=== PATIENT | male | born 1970 | race Caucasian/White ===

== ENCOUNTER 2016-10-16 11:33 | Emergency (ER) | payer OTHER ==
[2016-10-16 13:18] VITALS: BP 149/96
== END 2016-10-16 13:19 | disposition home or self-care (01) ==
LOC: ED 11:33
DX: S91.331A Puncture wound without foreign body, right foot, initial encounter (principal); L03.115 Cellulitis of right lower limb; W22.8XXA Striking against or struck by other objects, initial encounter; Y93.89 Activity, other specified; Y92.89 Other specified places as the place of occurrence of the external cause; Y99.8 Other external cause status
CPT/HCPCS: 90715; J3490; Q0092

== ENCOUNTER 2016-10-18 11:14 | Inpatient (IN) | payer OTHER ==
[~2016-10-18] VITALS: Ht 165.1 cm; Wt 71.9 kg
--- NOTE | 2016-10-18 11:49 | NUR ---
PT AMBULATORY TO ROOM, AWAITING MSE
--- NOTE | 2016-10-18 12:28 | NUR ---
MSE COMPLETED BY DR MONSALVE
[2016-10-18 12:44] LABS: BASOPHIL % 0.4 % (0-2); PLATELET COUNT 245 x10^3mcL (130-400); RED CELL DISTRIBUTION WIDTH 12.2 % (11.5-14.5)
[2016-10-18 12:48] LABS: CALCIUM 8.6 mg/dL (8.5-10.1); CARBON DIOXIDE 29.1 mmol/L (21-32); CHLORIDE SERUM 110 mmol/L (98-107); CREATININE SERUM 0.7 mg/dL (0.7-1.3); GFR1 > 60 mL/min; GLUCOSE SERUM 99 mg/dL (74-106); POTASSIUM SERUM 4.4 mmol/L (3.5-5.1); SODIUM SERUM 145 mmol/L (136-145)
[2016-10-18 12:52] LABS: ALBUMIN 3.4 g/dL (3.4-5.0); ALKALINE PHOSPHATASE 80 U/L (46-116); ALT/SGPT 29 U/L (16-63); AST/SGOT 19 U/L (15-37); BILIRUBIN TOTAL 0.59 mg/dL (0.20-1.00); TOTAL PROTEIN, SERUM 7.3 g/dL (6.4-8.2)
--- NOTE | 2016-10-18 13:09 | NUR ---
PT RESTING ON GURNEY IN A POSITION OF COMFORT. PT PLACED ON MONITOR WITH CALL LIGHT IN REACH.
--- NOTE | 2016-10-18 13:42 | NUR ---
REPORT GIVEN TO CABRERA JACKMAN TO ASSUME CARE OF PT.
[2016-10-18] MEDS ORDERED: CLINDAMYCIN HC300 MG PO (13:55)
[2016-10-18 15:20] VITALS: BP 132/85
--- NOTE | 2016-10-18 15:31 | NUR ---
RECEIVED PATIENT FROM ED VIA GUERNEY, PATIENT IN NO ACUTE DISTRESS, ALERT AND ORIENTED, C/O PAIN TO RIGHT FOOT AND WILL MEDICATE ORDERED, TELE # [id number] SR, ORIENTED PATIENT TO ROOM AND SURROUNDINGS, BED IN LOW POSITION, BED RAILS UP X 2, CALL LIGHT WITHIN REACH, WILL ENDORSE CARE TO PRIMARY NURSE ARLETTE JACKMAN
[2016-10-18 15:57] LABS: T3 TOTAL 0.96 ng/mL
[2016-10-18 15:59] LABS: FREE T4 1.02 ng/dL (0.76-1.46); FREE THYROXINE INDEX 1.9 ug/dL (1.4-4.5); T4(THYROXINE) 5.4 ug/dL (4.7-13.3)
[2016-10-18 17:25] VITALS: BP 137/96
[2016-10-18 18:07] LABS: UA SPECIFIC GRAVITY >=1.030 (1.005-1.035); microscopic required? YES; urine erythrocyte NEGATIVE (NEGATIVE)
--- NOTE | 2016-10-18 18:26 | NUR ---
PATIENT C/0 PAIN TO RIGHT FOOT 10/16. MEDICATED WITH NORCO ORDRED (SEE EMAR). DR. SMALL IN TO SEE PATIENT AND EXPLAIN RISKS AND BENEFITS OF INCISION AND DRAINAGE. PATIENT VERBALIZES UNDERSTANDING, SIGNED CONSENT. QUESTIONS AND CONCERNS ADDRESSED. WITNESSED BY PRIMARY RN.
[2016-10-18 18:37] LABS: AMPHETAMINE QUAL UR POSITIVE (NEG <=1000)
[2016-10-18 19:28] LABS: CHOLESTEROL/HDL RATIO 2.6
--- NOTE | 2016-10-18 20:20 | NUR ---
Awake and verbally responsive. No resp.distress noted. Had pain med earlier for c/o right foot pain with help. Kept RLE elevated. Erythema and edema noted. Pedal pulses palpable. Will cont.to monitor. Call light within reach.
[2016-10-18 20:53] VITALS: BP 153/103
--- NOTE | 2016-10-19 04:13 | NUR ---
Afebrile. [place] given as ordered for c/o right foot pain with help. Erythema and edema still apparent. Kept RLE elevated on pillows. (+)cms. Cont.on IV levaquin and cleocin. In no apparent distress noted.
[2016-10-19 05:27] VITALS: BP 169/103
--- NOTE | 2016-10-19 06:26 | NUR ---
notified re:pt's right foot pain not well controlled by norco 1 tab and also made aware of the high Bp.
[2016-10-19 06:49] LABS: BASOPHIL % 0.4 % (0-2); PLATELET COUNT 239 x10^3mcL (130-400); RED CELL DISTRIBUTION WIDTH 12.1 % (11.5-14.5)
--- NOTE | 2016-10-19 08:00 | NUR ---
RECEIVED PATIENT ALERT AND ORIENTED AND SITTING UP IN BED AND EATTING AT THIS TIME. VITALS ARE AT 98.4, 67, 18, 169/103, 98%B ON ROOM AIR. PATIENT AHS OTED ELEVATION FO THE BP. PATIENT HAS NO HISOTYR PER THE REPORT AND WILL ADVISE THE INTERNS INDICATED. NELDA TORRES STEPPED ON A NAIL AT WORK AND THE RIGHT FOOT IS WITH REDNESS AND SWELLING. DOUG HAS HX OF CYST REMOVAL AND NO OTHER HIOSTORY AT THIS TIME. АЛЕКСАНДРPENNY Arora NOTED LABS ARE WITH UA WITH POISTIVE FOR AMPHETAMINE AND BACTERIA IS FEW. PATIENT HAS BEEN ON LEVZAQUIN AND CLEAOSIN FOR THE INFECTION AND NO ADVERSEREACTION NTOED. PATIENT HAS CLEAR BREATH SOUND SAND ACTIVE BOWEL SOUNDS. ABDOJNE IS DISTENDED AND FIRM. PATIENT TOLERATED DIET AND NO ACUTE PAIN NOTED AT THIS TIME. NORCO WAS GIVEN AND MODERATELY EFFECTIVE PER THE NIGHT NIGHT REPORT. WILL CONTINUE TO MONTIOR INDICATED.
[2016-10-19 08:03] LABS: CALCIUM 8.1 mg/dL (8.5-10.1); CARBON DIOXIDE 28.1 mmol/L (21-32); CHLORIDE SERUM 105 mmol/L (98-107); CREATININE SERUM 0.6 mg/dL (0.7-1.3); GFR1 > 60 mL/min; GLUCOSE SERUM 104 mg/dL (74-106); PHOSPHOROUS 3.7 mg/dL (2.5-4.9); SODIUM SERUM 139 mmol/L (136-145)
--- NOTE | 2016-10-19 09:25 | NUR ---
SEEN BY DR CROWDER AND STAFF AND PLAN OF CARE DISCUSSED IN [facility]. PATIENT WITH CONSENT FOR THE I AND D BUT NO ORDERS YET NOTED. PATIENT HAS NOTE DELEVATED BP AND ADVISED THE INTERNS INDICATED AND ORDERS PENDING AT THIS TIME.
[2016-10-19 09:40] VITALS: BP 158/100
--- NOTE | 2016-10-19 10:57 | NUR ---
ECHO COMPLETED PT C/O FOOT PAIN RN NOTIFIED.
--- NOTE | 2016-10-19 11:30 | NUR ---
GAVE NORCO FOR PAIN PER PATIENT REQUEST. WILL MONITOR FOR EFFECTIVENESS.
--- NOTE | 2016-10-19 11:54 | NUR ---
TAKEN DOWN FOR I AND D AT THIS TIME. PATIENT HAS NOT BEEN NPO AND IS NOT IN THE SURGICAL UNIT SO SURGERY ORDERS DO NOT APPLY. RE: NPO/PREP. DR AWARE OF THE ORDERS AND PRESENT CONSENT. PLACED ANOTHER UNSIGNED CONSENT IN THE CHART FOR THEM TO HAVE THE PATIENT SIGN REVISED VERSION BEFORE THE PROCEDURE.
[2016-10-19 13:15] VITALS: BP 149/102
--- NOTE | 2016-10-19 13:29 | NUR ---
BACK FROM I AND D AND NOW ASKING FOR PAIN MEDICATION FOR PAIN. THE NURSE JUST GAVE NORCO PRIOR TO LEAVING THE FLOOR AND PATIENT HAS HAD LIDOCAINE TO THE SITE. PATIENT STATES HE IS JUST ANTICIPATING PAIN BUT DOES NOT HAVE AT THIS TIME.
--- NOTE | 2016-10-19 14:33 | NUR ---
PATIENT COMPLAINED OF PAIN TO THE FOOT. SPECIFALY THE SMALL TOE AREA. REWRAPPED THE [place] DUE TO THE VELCRO STRIP WAS CAUSING HIM DISCOMFORT. PATIENT STATED RELIEF. WILL GIVE PAIN MEDICATION AT 1500 INDICATED IF PAIN HAS STILL PAIN TO THE SITE. TOLERATED DIET AND CHECKED THE REST OF THE DRESSING AND NOT TO TIGHT OR ANY RESTRICTIONS NTOED. DRAINAGE NOTED TO THE TOP OF THE DRESSING BUT OTHERWISE INTACT.
--- NOTE | 2016-10-19 15:44 | NUR ---
PATIENT RESTING QUIETLY AT THIS TIME. IV INTACT AND PATIENT HAD GOOD RELIEF FROM THE ADJUSTING OF THE DRESSING AND THE NORCO GIVEN. WILL CONTINUE TO MONITOR.
[2016-10-19 17:50] VITALS: BP 140/90
--- NOTE | 2016-10-19 18:33 | NUR ---
PATIENT HAS BEEN GATHERING FOOD AT BEDSIDE AND SOMEHOW FAMILY AND FRIENDS ARE BRINGING FOOD. PATIENT HAS GATORAIDE, SNACKS AND NOW A MEAL AT BEDSIDE. PATIENT WAS REMINDED ALONG WITH THE VISITORS THAT NO FOOD FROM HOME IS TO BE BROUGHT IN TO THE PATIENT. STILL MORE ARRIVES. WILL ENDORSE TO THE NEXT SHIFT AND ADVISE THE CHARGE NURSE WELL.
--- NOTE | 2016-10-19 20:08 | NUR ---
RECEIVED PATIENT IN BED AWAKE, ALERT AND ORIENTED WITH NO SIGN OF ACUTE DISTRESS NOTED. TELE# 13 NSR ON MONITOR DENIES CHESTPAIN. DRESSING TO RT FOOT CDI. IV TO LAC INTACT AND INFUSING WELL. WILL CONTINUE TO MONITOR.
--- NOTE | 2016-10-19 20:22 | NUR ---
C/O PAIN RT FOOT WOUND, NORCO 1 TAQB PO GIVEN PRESCRIBED. WILL CONTINUE TO MONITOR.
[2016-10-19 20:42] VITALS: BP 144/87
--- NOTE | 2016-10-19 22:28 | NUR ---
STILL C/O PAIN ON HIS RT FOOT, DR PENA MADE AWARE, WAITING FOR NEW ORDERS.
--- NOTE | 2016-10-19 22:51 | NUR ---
STILL C/O PAIN, MORPHINE 5MG IVP GIVEN PRESCRIBED. WILL CONTINUE TO MONITOR.
--- NOTE | 2016-10-19 23:56 | NUR ---
RELIEF NOTED PER PATIENT AFTER PAIN MEDS WAS GIVEN, ELEVATED RT FOOT WITH PILLOW.
--- NOTE | 2016-10-20 00:57 | NUR ---
SLEEPING THIS TIME AFTER PAIN MEDS WAS GIVEN. WILL CONTINUE TO MONITOR.
--- NOTE | 2016-10-20 04:27 | NUR ---
AWAKE C/O PAIN TO RT FOOT, MEDICATED WITH MORPHINE 5MG IVP PRESCRIBED. WILL CONTINUE TO MONITOR.
--- NOTE | 2016-10-20 05:04 | NUR ---
SLEPT AT LONG INTERVALS C/O RT FOOT PAIN X2 AND MEDICATED PRESCRIBED. DRESSING TO RT FOOT CDI. ALL NEEDS ATTENDED.
[2016-10-20 05:10] VITALS: BP 162/98
--- NOTE | 2016-10-20 05:58 | NUR ---
BLOOD PRESSURE CHECKED- 162/98, DR PENA MADE AWARE WITH ORDERS TO CARRY OUT.
[2016-10-20 06:17] VITALS: BP 135/94
[2016-10-20 08:30] VITALS: BP 153/96
--- NOTE | 2016-10-20 08:47 | NUR ---
PATIENT RESTING IN BED NO DISTRESS NOTED, DENIES PAIN, ALL DUE MEDS GIVEN. CLEOCIN 600MG IVPB GIVEN. NEEDS ANTICIPATED. UPDATED POC AND DR. SONYA NINO.
[2016-10-20 08:49] LABS: BASOPHIL % 0.4 % (0-2); PLATELET COUNT 285 x10^3mcL (130-400); RED CELL DISTRIBUTION WIDTH 12.2 % (11.5-14.5)
[2016-10-20 08:58] LABS: CALCIUM 8.9 mg/dL (8.5-10.1); CARBON DIOXIDE 31.1 mmol/L (21-32); CHLORIDE SERUM 102 mmol/L (98-107); CREATININE SERUM 0.7 mg/dL (0.7-1.3); GFR1 > 60 mL/min; GLUCOSE SERUM 106 mg/dL (74-106); MAGNESIUM 2.2 mg/dL (1.8-2.4); PHOSPHOROUS 3.7 mg/dL (2.5-4.9); POTASSIUM SERUM 3.9 mmol/L (3.5-5.1); SODIUM SERUM 137 mmol/L (136-145)
[2016-10-20] MEDS ORDERED: ZES10 PO (10:23)
[2016-10-20] MEDS ORDERED: METOPROLOL TART25 M1 PO (10:23)
[2016-10-20] MEDS ORDERED: ACETAMINOPHEN-H1 TA1 PO (10:24)
[2016-10-20] MEDS ORDERED: CLINDAMYCIN HC300 MG PO (10:32)
[2016-10-20] MEDS ORDERED: LEVAQUIN500 M1 PO (10:34)
[2016-10-20] MEDS ORDERED: LAC PO (10:34)
[2016-10-20 11:35] VITALS: BP 153/96
--- NOTE | 2016-10-20 12:13 | NUR ---
PATIENT RESTING IN BED NO COMPLAINTS, VISITORS AT BEDSIDE, UPDATED ON DISCHARGE STATUS. DUE MEDS GIVEN. CONT TO MONITOR.
--- NOTE | 2016-10-20 15:25 | NUR ---
PATIENT GETTING DRESS, DISCHARGE INSTRUCTIONS AND PRESCRIPTIONS EXPLAINED, F/U APPT ON 10/24/16. ALL BELONGINGS WITH PATIENT. C/O /10 RT FOOT PAIN, NORCO 1 TAB PO GIVEN. CALL MOLDED FRAMES ASSEMBLER TO WHEEL PATIENT OUT.
== END 2016-10-20 15:33 | disposition home or self-care (01) | DRG 579 ==
LOC: ED 11:14 → DU 13:21
PROVIDERS: Emergency Medicine; Podiatrist; ADMIT Family Medicine
PROC: 0J9Q0ZZ Drainage of Right Foot Subcutaneous Tissue and Fascia, Open Approach (ICD-10-PCS; principal; 2016-10-19 12:00)
DX: S91.331S Puncture wound without foreign body, right foot, sequela (principal); G92 Toxic encephalopathy; N17.0 Acute kidney failure with tubular necrosis; L03.115 Cellulitis of right lower limb; T43.621A Poisoning by amphetamines, accidental (unintentional), initial encounter; F15.129 Other stimulant abuse with intoxication, unspecified; M25.461 Effusion, right knee; I73.9 Peripheral vascular disease, unspecified; I10 Essential (primary) hypertension; E87.8 Other disorders of electrolyte and fluid balance, not elsewhere classified; F17.210 Nicotine dependence, cigarettes, uncomplicated; W45.0XXS Nail entering through skin, sequela; Y92.009 Unspecified place in unspecified non-institutional (private) residence as the place of occurrence of the external cause
CPT/HCPCS: 83880; 84439; J0690; J1956; J2001; J2270; J3490; J7030; Q0092

== ENCOUNTER 2016-10-24 10:27 | Emergency (ER) | payer OTHER ==
[~2016-10-24] VITALS: Ht 167.6 cm; Wt 73.0 kg
[~2016-10-24 10:27] MED LIST: ACETAMINOPHEN-H1 TA1 PO; CLINDAMYCIN HC300 MG PO; LAC PO; LEVAQUIN500 M1 PO; METOPROLOL TART25 M1 PO; ZES10 PO
[2016-10-24 10:44] VITALS: BP 148/93
== END 2016-10-24 11:10 | disposition home or self-care (01) ==
LOC: ED 10:27
DX: Z48.01 Encounter for change or removal of surgical wound dressing (principal); I10 Essential (primary) hypertension

== ENCOUNTER 2016-11-10 09:36 | Emergency (ER) | payer OTHER | END 2016-11-10 10:35 | disposition home or self-care (01) | LOC: ED 09:36 | DX: Z76.0 Encounter for issue of repeat prescription (principal); L03.116 Cellulitis of left lower limb; I10 Essential (primary) hypertension; Z79.899 Other long term (current) drug therapy | CPT/HCPCS: J0696 ==

== ENCOUNTER 2016-11-14 09:28 | Emergency (ER) | payer SELFPAY ==
[2016-11-14 10:24] VITALS: BP 101/69
== END 2016-11-14 10:24 | disposition home or self-care (01) ==
LOC: ED 09:28
DX: T43.625A Adverse effect of amphetamines, initial encounter (principal); Y92.89 Other specified places as the place of occurrence of the external cause